=== PATIENT | male | born 1945 | race American Indian/Alaskan Native ===

== ENCOUNTER 2019-04-23 11:49 | Emergency (ER) | payer MEDICARE ==
[2019-04-23] MEDS ORDERED: ONDANSETRON 4 MG/2 ML INJ IV ONE (12:13)
[2019-04-23] MEDS ORDERED: SODIUM CHLORIDE 0.9% 1000 ML 1,000 ML IV ONE ×2 (12:13→16:39)
--- NOTE | 2019-04-23 12:18 | Emergency Department Report ---
ED Syncope HPI - General Chief Complaint: Dizziness Stated Complaint: WEAKNESS/DIZZINESS Time Seen by Provider: 04/23/19 12:06 Source: patient, family, EMS - History of Present Illness Initial Comments: Patient is 73 years old male with history of hypertension, diabetes and coronary artery disease. Patient brought to the emergency room via EMS from [facility]. Patient stated that he was sitting when all of a sudden he started feeling bad with generalized weakness and became diaphoretic. EMS stated that patient initial blood pressure was 90/30, patient given normal saline bolus and his blood pressure improved to 111/65. Patient stated that he feel better after that. Patient stated that he started to have watery diarrhea this morning. He stated that he took his blood pressure medicine also. Patient denied any vomiting, fever, chills or abdominal pain. Patient denied any chest pain, shortness of breath, focal weakness numbness or tingling sensation. Timing/Prior Episodes: single episode today Precipitating Factors: Positive: diaphoresis, lightheadedness Loss of Consciousness: no loss of consciousness Current Symptoms: back to normal - Related Data Allergies/Adverse Reactions: Allergies Sulfa (Sulfonamide Antibiotics) Allergy (Verified 04/23/19 12:05) Rash ondansetron [From Zofran] Adverse Reaction (Verified 04/23/19 14:40) Hives Home Medications: Ambulatory Orders Dicyclomine [Bentyl] 20 mg PO QID #20 tablet 04/23/19 Metoclopramide [Reglan] 10 mg PO TID PRN #20 tab 04/23/19 diphenhydrAMINE [Benadryl CAP] 25 mg PO Q8HR PRN #21 capsule 04/23/19 ED Review of Systems ROS: Stated complaint: WEAKNESS/DIZZINESS Other details as noted in HPI Comment: All other systems reviewed and negative Constitutional: denies: chills, fever Respiratory: denies: cough, shortness of breath, SOB with exertion, wheezing Cardiovascular: denies: chest pain Gastrointestinal: nausea, diarrhea. denies: abdominal pain, vomiting, constipation, hematemesis, melena, hematochezia Neurological: weakness (generalized). denies: headache, numbness, paresthesias, confusion, abnormal gait ED Past Medical Hx - Past Medical History Hx Hypertension: Yes Hx Heart Attack/AMI: Yes - Surgical History Additional Surgical History: hernia repair - Social History Smoking Status: Never Smoker - Medications Home Medications: Home Medications Medication Instructions Recorded Confirmed Last Taken Type Dicyclomine [Bentyl] 20 mg PO QID #20 tablet 04/23/19 Unknown Rx Metoclopramide [Reglan] 10 mg PO TID PRN #20 tab 04/23/19 Unknown Rx diphenhydrAMINE [Benadryl CAP] 25 mg PO Q8HR PRN #21 capsule 04/23/19 Unknown Rx ED Physical Exam - General Limitations: No Limitations General appearance: alert, in no apparent distress - Head Head exam: Present: atraumatic, normocephalic, normal inspection - Eye Eye exam: Present: normal appearance - ENT ENT exam: Present: mucous membranes dry - Neck Neck exam: Present: normal inspection, full ROM. Absent: tenderness, meningismus, lymphadenopathy, thyromegaly - Respiratory Respiratory exam: Present: normal lung sounds bilaterally - Cardiovascular Cardiovascular Exam: Present: regular rate, normal rhythm, normal heart sounds - GI/Abdominal GI/Abdominal exam: Present: soft, normal bowel sounds. Absent: distended, tenderness, guarding, rebound, rigid, organomegaly, mass, bruit, pulsatile mass, hernia - Extremities Exam Extremities exam: Present: normal inspection, full ROM, normal capillary refill. Absent: pedal edema, calf tenderness - Back Exam Back exam: Present: normal inspection, full ROM. Absent: CVA tenderness (R), CVA tenderness (L), muscle spasm, paraspinal tenderness, vertebral tenderness - Neurological Exam Neurological exam: Present: alert, oriented X3, CN II-XII intact, normal gait, reflexes normal - Skin Skin exam: Present: warm, intact, normal color ED Course Vital Signs 04/23/19 04/23/19 04/23/19 12:30 13:00 13:40 Temperature Pulse Rate 76 72 Respiratory 15 15 Rate Blood Pressure 118/81 110/76 117/79 Blood Pressure [Left] O2 Sat by Pulse 96 98 100 Oximetry 04/23/19 04/23/19 04/23/19 14:03 14:04 14:54 Temperature 97.5 F L Pulse Rate 97 H 90 Respiratory 30 H 33 H Rate Blood Pressure 117/79 108/72 Blood Pressure 101/74 [Left] O2 Sat by Pulse 97 96 99 Oximetry 04/23/19 04/23/19 15:32 16:30 Temperature Pulse Rate 79 85 Respiratory 25 H 17 Rate Blood Pressure 101/71 114/83 Blood Pressure [Left] O2 Sat by Pulse Oximetry ED Medical Decision Making - Lab Data Result diagrams: 04/23/19 12:24 04/23/19 12:24 - EKG Data -: EKG Interpreted by Me EKG shows normal: sinus rhythm Rate: normal - EKG Data Interpretation: no acute changes - Radiology Data Radiology results: report reviewed - Medical Decision Making Patient is 73 years old male with history of hypertension, diabetes and coronary artery disease. Patient brought to the emergency room via EMS from [facility] waiting room. Patient stated that he was sitting when all of a sudden he started feeling bad with generalized weakness and became diaphoretic. EMS stated that patient initial blood pressure was 90/30, patient given normal saline bolus and his blood pressure improved to 111/65. Patient stated that he feel better after that. Patient stated that he started to have watery diarrhea this morning. He stated that he took his blood pressure medicine also. Patient denied any vomiting, fever, chills or abdominal pain. Patient denied any chest pain, shortness of breath, focal weakness numbness or tingling sensation. Patient received 2 L of normal saline and Zofran. Patient stated that his dizziness is completely resolved. Patient continued to have watery diarrhea in the emergency room. Patient blood pressure improved significantly. CT brain is negative for acute finding. CTA chest is negative for acute finding. EKG is unremarkable. Labs reviewed and showed elevated white blood cells most likely secondary to his diarrhea. Patient abdomen is soft and nontender showing no evidence of acute abdomen. Patient advised to follow up with his primary care physician in the next 2-3 days and to return to the ER if symptoms are not improved. Critical care attestation.: If time is entered above; I have spent that time in minutes in the direct care of this critically ill patient, excluding procedure time. ED Disposition Clinical Impression: Dizziness, Hypotension, Diarrhea, Drug rash Disposition: -01 TO HOME OR SELFCARE Is pt being admited?: No Condition: Stable Instructions: Acute Diarrhea (ED), Hypotension (ED), Dizziness (ED) Prescriptions: Dicyclomine [Bentyl] 20 mg PO QID #20 tablet Metoclopramide [Reglan] 10 mg PO TID PRN #20 tab PRN Reason: Vomiting Referrals: GLO PRINCE MD [Primary Care Provider] - 3-5 Days
[2019-04-23 13:06] LABS: Hematocrit 47.4 % (35.5-45.6); Hemoglobin 16.2 gm/dl (11.8-15.2); Mean Corpuscular HGB Conc 34 % (32-34); Mean Corpuscular Volume 96 fl (84-94); Platelet Count 244 K/mm3 (140-440); Red Blood Count 4.96 M/mm3 (3.65-5.03); Red Cell Distribution Width 15.4 % (13.2-15.2)
--- NOTE | 2019-04-23 13:10 | Cat Scan Report ---
CT BRAIN: 04/23/2019 INDICATION / CLINICAL INFORMATION: Lightheadedness/Dizziness. COMPARISON: None available. FINDINGS: BRAIN/INTRACRANIAL STRUCTURES: Unenhanced CT images of the brain demonstrate no evidence of acute int racranial abnormality. Age-related atrophic changes are present. Anterior temporal lobe atrophy is more pronounced. Dolichoectasia of the distal internal carotid arteries is present bilaterally associated with atheros clerotic vascular calcifications. Vertebral artery calcifications are also noted. There is no CT evidence of acute ischemic injury, hemorrhage, or mass. There are no abnormal extra-ax ial fluid collections. EXTRACRANIAL STRUCTURES: Unremarkable. IMPRESSION: No acute abnormality. Chronic and age-related changes. All CT scans at this location are performed using dose reduction to ALARA by means of automated expos ure control. Signer Name: Dada Fernández MD Signed: 04/23/2019 1:06 PM Workstation Name: [id number]
[2019-04-23 13:17] LABS: Eosinophils % (Auto) 0.4 % (0.0-4.3); Monocytes # (Auto) 0.8 K/mm3 (0.0-0.8); Monocytes % (Auto) 6.2 % (0.0-7.3)
[2019-04-23 13:29] LABS: BUN/Creatinine Ratio 8; Blood Urea Nitrogen 10 mg/dL (9-20); Calcium 9.1 mg/dL (8.4-10.2); Hemolysis Index 10
[2019-04-23 13:31] LABS: Albumin 3.8 g/dL (3.9-5); Bilirubin,Direct 0.3 mg/dL (0-0.2)
[2019-04-23] MEDS ORDERED: diphenhydrAMINE 25 MG CAP PO ONE ×2 (14:01→14:02)
[2019-04-23 14:29] LABS: Eosinophils % (Manual) 0 % (0.0-4.3); Total Cells Counted 100
[2019-04-23 14:33] LABS: Platelet Estimate Consistent w Auto; RBC Morphology Normal
--- NOTE | 2019-04-23 15:36 | Cat Scan Report ---
CTA CHEST WITH IV CONTRAST INDICATION / CLINICAL INFORMATION: SYNCOPE WITH SOB, ELEVATED D-DIMER. TECHNIQUE: Axial CT images were obtained through the chest after injection of 60 mL IV contrast. 3 plane MIP and /or 3D reconstructions were produced. All CT scans at this location are performed using CT dose reduc tion for ALARA by means of automated exposure control. COMPARISON: None available. FINDINGS: PULMONARY ARTERIES: No pulmonary emboli. THORACIC AORTA: There is mild dilatation of the descending thoracic aorta. Maximum transverse diamete r is 5.3 cm. No evidence of dissection. HEART: No significant abnormality. CORONARY ARTERIES: Coronary artery calcifications are present. PLEURA: No pleural effusion. No pneumothorax. LYMPH NODES: No enlarged lymph nodes identified. LUNGS: Mild chronic appearing interstitial lung disease. No superimposed acute pulmonary or pleural d isease. ADDITIONAL FINDINGS: None. UPPER ABDOMEN: No acute findings. SKELETAL STRUCTURES: No significant osseous abnormality. IMPRESSION: 1. No CT evidence for pulmonary embolism. 2. No acute pulmonary or pleural disease. 3. Mild dilatation of the proximal descending thoracic aorta with maximum transverse diameter of 5.3 cm. Signer Name: Ysabel Gurrola MD Signed: 04/23/2019 3:31 PM Workstation Name: [id number]
[2019-04-23 16:59] VITALS: BP 114/83
[2019-04-23 17:18] LABS: Bilirubin,Urine NEG (Negative); Blood,Urine NEG (Negative); Color,Urine Yellow (Yellow); Mucus,Urine FEW /HPF; Protein,Urine <15 mg/dL mg/dL (Negative); Urobilinogen,Urine < 2.0 mg/dL (<2.0)
[2019-04-23] MEDS ORDERED: diphenhydrAMINE 50 MG/ML VIAL IV ONE (17:33)
[2019-04-23] MEDS ORDERED: methylPREDNISolone Sod Succinate 125 MG/2 ML INJ IV ONE (17:33)
== END 2019-04-23 18:00 | disposition home or self-care (01) ==
LOC: ED 11:49
DX: R42 Dizziness and giddiness (principal); I95.89 Other hypotension; L27.0 Generalized skin eruption due to drugs and medicaments taken internally; I10 Essential (primary) hypertension; I25.2 Old myocardial infarction; Z88.2 Allergy status to sulfonamides; Z88.6 Allergy status to analgesic agent
CPT/HCPCS: 36415; 70450; 71275; 80048; 80076; 81001; 84484; 85007; 85025; 85379; 93005; 93010; 96361; 96374; 96375; 99284; J1200; J2405; J2930; J7030; Q9967